=== PATIENT | female | born 1950 | race Caucasian/White ===

== ENCOUNTER → 2019-08-15 | Outpatient (CLI) | payer OTHER ==
--- NOTE | 2019-08-17 07:22 | SLEEP ---
[address] [address] SLEEP STUDY REPORT Name: RENETTA HORTON Room: [facility] Fabiola#: [id number] Admission: 08/15/19 Attend Phys: Casimiro Munson Discharge: Date of : 54 Report #: [id number] THIS REPORT FOR: //name// CC: Eva Moreland MD This study has been reviewed in its entirety by a board certified sleep specialist DATE OF SERVICE: 08/15/2019 SLEEP STUDY REFERRING PHYSICIAN: Dr. Eva Moreland. The patient is a 68-year-old who weighs 190 pounds with a BMI of 35.9. The patient's [place] score was 4. The patient had a home sleep study and was diagnosed with sleep apnea and was referred for in-lab CPAP titration study. During the night study, the patient spent 409 minutes in bed and slept for 335 minutes with a sleep efficiency of 82%. Sleep latency was 36.8 minutes with a REM latency of 127 minutes. Sleep architecture showed normal stage 1 sleep, increased stage 2 sleep, normal slow wave and normal REM sleep. EKG monitoring revealed an average heart rate of 61 beats per minute. No sustained arrhythmias observed. PLMS were seen at an index of 40 per hour and 7 per hour caused EEG arousals. The patient was started on CPAP at a pressure of 5 cm water and titrated up to 13 cm water. Prior to that, the patient did reasonably well at a CPAP pressure of 10 cm of water with an AHI of 3.9 per hour, 139 minutes of sleep including 36 minutes of REM sleep. The patient's oxygen saturation at that pressure of 10 cm of water remains above 92%. IMPRESSION: 1. Sleep apnea diagnosed by previous home sleep study. 2. Moderate periodic limb movements at an index of 40 per hour and 7 per hour caused EEG arousals. RECOMMENDATIONS: 1. CPAP at 10 cm water completely eliminated the patient's sleep apnea and should be used on a nightly basis. 2. Follow up in 4-6 weeks to assess compliance with CPAP and to document clinical improvement. 3. [place] [address] SLEEP STUDY REPORT Name: RENETTA HORTON Room: [facility]#: [id number] Admission: 08/15/19 Attend Phys: Casimiro Munson Discharge: Date of : 54 Report #: [id number] 4. Avoid [employer] depressants. 5. Cautioned regarding driving until symptoms of sleep apnea resolve with the use of CPAP. 6. PLMS does not need to be treated unless the patient has symptoms of restless legs during the day. <ELECTRONICALLY SIGNED> By: Ayaz Rothman MD 08/17/19 0722 [id number] Rothman MD /rodney
== END ==
LOC: M.SLEEPLAB 20:42
DX: G47.30 Sleep apnea, unspecified (principal)